=== PATIENT | male | born 1965 | race Caucasian/White ===

== ENCOUNTER 2019-04-02 19:38 | Inpatient (IN) | payer BC ==
[~2019-04-02] VITALS: Ht 180.3 cm; Wt 90.3 kg
[~2019-04-02 19:38] MED LIST: AMIODARONE 150 MG/3 ML VIAL ONE
[2019-04-02] MEDS ORDERED: HEPARIN for IV BOLUS 10,000 UNIT/10 ML VIAL. IV ONE ×2 (19:43→20:15)
[2019-04-02] MEDS ORDERED: ONDANSETRON PF 4 MG/2 ML VIAL. IVP ONE (19:45)
--- NOTE | 2019-04-02 19:46 | PHYS DOC ---
Adult General HPI HPI 54-year-old male presents to the emergency department with complaints of chest pain via EMS. Patient's underlying history of hypertension, coronary artery disease with history of TN approximate 7 years ago. Patient states he was not stented at that time, CT had good collateral flow according to the patient. Patient describes complaints of nausea, pressure sensation center aspect of his chest, some shortness of breath, diaphoresis. Nothing makes his pain worse, nothing makes his pain better. EMS provided aspirin 324 mg prior to arrival. Patient received 1 nitroglycerin in the emergency department, 2 mg morphine, blood pressure 160s systolically. EKG in the emergency department reveals evidence of a tree V4 V5 elevation. No significant reciprocal changes appreciated on examination. IV established, 4000 units of heparin provided. Review of Systems Review of Systems Constitutional: Denies fever or chills [] Respiratory: Denies cough or shortness of breath [] Cardiovascular: No additional information not addressed in HPI [] GI: Denies abdominal pain, + nausea, vomiting, no bloody stools or diarrhea [] Musculoskeletal: Denies back pain or joint pain [] Neurologic: Denies headache, focal weakness or sensory changes [] All other systems were reviewed and found to be within normal limits, except as documented in this note. Current Medications Current Medications Current Medications Medications (Trade) Dose Ordered Sig/Yolanda Start Time Stop Time Status Last Admin Dose Admin Fentanyl Citrate (Fentanyl 2ml Vial) 100 mcg 1X ONCE 04/02/19 20:15 04/02/19 20:25 DC 04/02/19 20:15 200 MCG Heparin Sodium (Porcine) (Heparin Sodium) 4,000 unit 1X ONCE 04/02/19 19:43 04/02/19 21:21 DC 04/02/19 19:43 4,000 UNIT Heparin Sodium/ Sodium Chloride (HEPARIN for ARTERIAL LINE FLUSH) 1,000 unit 1X ONCE 04/02/19 20:15 04/02/19 20:25 DC 04/02/19 20:15 1,000 UNIT Iodixanol (Visipaque 320) 100 ml 1X ONCE 04/02/19 20:15 04/02/19 20:25 DC 04/02/19 20:15 274 ML Lidocaine HCl (Lidocaine 1% 20ml Vial) 20 ml STK-MED ONCE 04/02/19 19:57 04/02/19 19:58 DC Lidocaine HCl (Xylocaine-Mpf 1% 2ml Vial) 2 ml 1X ONCE 04/02/19 20:15 04/02/19 20:25 DC 04/02/19 20:15 1 ML Midazolam HCl (Versed) 2 mg 1X ONCE 04/02/19 20:15 04/02/19 20:25 DC 04/02/19 20:15 3 MG Morphine Sulfate (Morphine Sulfate) 2 mg 1X ONCE 04/02/19 20:00 04/02/19 20:01 DC 04/02/19 19:45 2 MG Nitroglycerin (Nitro-Bid Oint) 0.5 inch 1X ONCE 04/02/19 20:05 04/02/19 21:21 DC 04/02/19 20:05 0.5 INCH Nitroglycerin (Nitroglycerin) 200 mcg 1X ONCE 04/02/19 20:15 04/02/19 20:25 DC Nitroglycerin (Nitrostat) 0.4 mg PRN Q5MIN PRN 04/02/19 20:00 04/03/19 00:42 DC 04/02/19 19:40 0.4 MG Ondansetron HCl (Zofran) 4 mg 1X ONCE 04/02/19 19:45 04/02/19 20:08 DC 04/02/19 19:45 4 MG Verapamil HCl (Verapamil) 2.5 mg 1X ONCE 04/02/19 20:15 04/02/19 20:25 DC Allergies Allergies Physical Exam Physical Exam Constitutional: Well developed, well nourished, no acute distress, non-toxic appearance. [] HENT: Normocephalic, atraumatic, bilateral external ears normal, oropharynx moist, no oral exudates, nose normal. [] Eyes: PERRLA, EOMI, conjunctiva normal, no discharge. [] Cardiovascular:Heart rate regular rhythm, no murmur [] Lungs & Thorax: Bilateral breath sounds clear to auscultation [] Abdomen: Bowel sounds normal, soft, no tenderness, no masses, no pulsatile masses. [] Skin: Warm, dry, no erythema, no rash. [] Back: No tenderness, no CVA tenderness. [] Extremities: No tenderness, no edema. [] Neurologic: Alert and oriented X 3, no focal deficits noted. [] Psychologic: Affect normal, judgement normal, mood normal. [] Current Patient Data Vital Signs Vital Signs Date Time Temp Pulse Resp B/P (MAP) Pulse Ox O2 Delivery O2 Flow Rate FiO2 04/02/19 20:15 12 04/02/19 20:15 60 04/02/19 20:05 96 Room Air 04/02/19 20:05 127/75 04/02/19 19:38 97.7 97.7 Lab Values Laboratory Tests Test 04/02/19 19:45 04/02/19 19:51 White Blood Count 10.7 x10^3/uL (4.0-11.0) Red Blood Count 5.39 x10^6/uL (4.30-5.70) Hemoglobin 17.3 g/dL (13.0-17.5) Hematocrit 49.3 % (39.0-53.0) Mean Corpuscular Volume 92 fL (79-100) Mean Corpuscular Hemoglobin 32 pg (25-35) Mean Corpuscular Hemoglobin Concent 35 g/dL (31-37) Red Cell Distribution Width 13.5 % (11.5-14.5) Platelet Count 330 x10^3/uL (140-400) Neutrophils (%) (Auto) 47 % (31-73) Lymphocytes (%) (Auto) 41 % (24-48) Monocytes (%) (Auto) 7 % (0-9) Eosinophils (%) (Auto) 5 % (0-3) H Basophils (%) (Auto) 1 % (0-3) Neutrophils # (Auto) 5.0 x10^3/uL (1.8-7.7) Lymphocytes # (Auto) 4.4 x10^3/uL (1.0-4.8) Monocytes # (Auto) 0.7 x10^3/uL (0.0-1.1) Eosinophils # (Auto) 0.5 x10^3/uL (0.0-0.7) Basophils # (Auto) 0.1 x10^3/uL (0.0-0.2) Prothrombin Time 12.9 SEC (11.7-14.0) Prothrombin Time INR 1.0 (0.8-1.1) Sodium Level 141 mmol/L (136-145) Potassium Level 4.2 mmol/L (3.5-5.1) Chloride Level 103 mmol/L (98-107) Carbon Dioxide Level 30 mmol/L (21-32) Anion Gap 8 (6-14) Blood Urea Nitrogen 9 mg/dL (8-26) Creatinine 1.0 mg/dL (0.7-1.3) Estimated GFR (Cockcroft-Gault) 77.9 BUN/Creatinine Ratio 9 (6-20) Glucose Level 138 mg/dL (70-99) H Calcium Level 9.3 mg/dL (8.5-10.1) Magnesium Level 2.2 mg/dL (1.8-2.4) Total Bilirubin 0.5 mg/dL (0.2-1.0) Aspartate Amino Transferase (AST) 16 U/L (15-37) Alanine Aminotransferase (ALT) 22 U/L (16-63) Alkaline Phosphatase 76 U/L (46-116) Troponin I Quantitative < 0.017 ng/mL (0.000-0.055) Total Protein 7.3 g/dL (6.4-8.2) Albumin 3.9 g/dL (3.4-5.0) Albumin/Globulin Ratio 1.1 (1.0-1.7) POC Troponin I 0.01 ng/ml (<0.08) Laboratory Tests 04/02/19 19:45 Laboratory Tests 04/02/19 19:45 EKG EKG EKG transmission from EMS reveals evidence of anterior septal ST elevation V2 V3 V4 with minimal elevation in V5. Repeat EKG in the emergency department reveals evidence of elevation in V3 V4, heart rate 69. Interpretation time 1946[] Radiology/Procedures Radiology/Procedures [] Course & Med Decision Making Course & Med Decision Making Pertinent Labs and Imaging studies reviewed. (See chart for details) []54-year-old male presents to the emergency department with complaints of chest pain via EMS. Patient's underlying history of hypertension, coronary artery disease with history of TN approximate 7 years ago. Patient states he was not stented at that time, had good collateral flow according to the patient. Patient describes complaints of nausea, pressure sensation center aspect of his chest, some shortness of breath, diaphoresis. Nothing makes his pain worse, nothing makes his pain better. EMS provided aspirin 324 mg prior to arrival. Patient received 1 nitroglycerin in the emergency department, 2 mg morphine, blood pressure 160s systolically. EKG in the emergency department reveals evidence of V3 V4 V5 elevation. No significant reciprocal changes appreciated on examination. IV established, 4000 units of heparin provided. 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 Departure Departure Impression: Primary Impression: STEMI (ST elevation myocardial infarction) Additional Impression: Hypertension Disposition: ADMITTED INPATIENT Admitting Physician: ROLANDO Condition: GUARDED Critical Care Time Critical care time was 35 minutes exclusive of procedures. Problem Qualifiers Primary Impression: STEMI (ST elevation myocardial infarction) Involved coronary artery: unspecified coronary artery Qualified Codes: I21.3 - ST elevation (STEMI) myocardial infarction of unspecified site Additional Impression: Hypertension Hypertension type: essential hypertension Qualified Codes: I10 - Essential (primary) hypertension KATIE BISHOP MD Apr 02, 2019 19:46
[2019-04-02 19:56] LABS: BASO # 0.1 x10^3/uL (0.0-0.2); BASO % 1 % (0-3); EOS # 0.5 x10^3/uL (0.0-0.7); EOS % 5 % (0-3); HEMATOCRIT 49.3 % (39.0-53.0); HEMOGLOBIN 17.3 g/dL (13.0-17.5); LYMPH # 4.4 x10^3/uL (1.0-4.8); LYMPH % 41 % (24-48); MEAN CORPUSCULAR HEMOGLOBIN 32 pg (25-35); MEAN CORPUSCULAR HGB CONC 35 g/dL (31-37); MEAN CORPUSCULAR VOLUME 92 fL (79-100); MONO # 0.7 x10^3/uL (0.0-1.1); MONO % 7 % (0-9); NEUT % 47 % (31-73); PLATELET COUNT 330 x10^3/uL (140-400); RED BLOOD COUNT 5.39 x10^6/uL (4.30-5.70); RED CELL DISTRIBUTION WIDTH 13.5 % (11.5-14.5); WHITE BLOOD COUNT 10.7 x10^3/uL (4.0-11.0)
[2019-04-02] MEDS ORDERED: LIDOCAINE 1% Multi-Dose 20 ML VIAL. ONE (19:57)
[2019-04-02] MEDS ORDERED: IODIXANOL 320 MG/ML 100 ML VIAL. ONE ×4 (19:57→21:58)
[2019-04-02] MEDS ORDERED: NITROGLYCERIN SUBLINGUAL 0.4 MG BOTTLE OF 25. SL PRN (20:00)
[2019-04-02] MEDS ORDERED: MORPHINE SULFATE 2 MG/ML VIAL. IV ONE (20:00)
[2019-04-02 20:05] LABS: PROTHROMBIN TIME PATIENT 12.9 SEC (11.7-14.0)
[2019-04-02] MEDS ORDERED: NITROGLYCERIN OINT 1 GM PACKET. TP ONE (20:05)
[2019-04-02] MEDS ORDERED: fentaNYL PF VIAL 100 MCG/2 ML VIAL ONE ×3 (20:06→22:27)
[2019-04-02] MEDS ORDERED: VERAPAMIL 5 MG/2 ML VIAL. ONE ×2 (20:06→21:00)
[2019-04-02] MEDS ORDERED: MIDAZOLAM HCL/PF 2 MG/2 ML VIAL. ONE ×2 (20:06→21:05)
[2019-04-02] MEDS ORDERED: HEPARIN for IV BOLUS 10,000 UNIT/10 ML VIAL. ONE (20:06)
[2019-04-02] MEDS ORDERED: NITROGLYCERIN OINT 1 GM PACKET. ONE (20:06)
[2019-04-02] MEDS ORDERED: NITROGLYCERIN 200 MCG/2 ML SYRINGE FOR CATH/VASC LAB. ONE (20:06)
--- NOTE | 2019-04-02 20:06 | RAD ---
EXAM: CHEST 1 VIEW History: ST elevation MO COMPARISON: 04/02/2019 TECHNIQUE: Single portable radiograph of the chest FINDINGS: The cardiac silhouette is unremarkable. The lungs are clear bilaterally. The costophrenic sulci are clear and well demarcated. IMPRESSION: No radiographic evidence of an acute cardiopulmonary process. Electronically signed by: Ismael Tadeo MD (04/02/2019 8:03 PM) [id number]
[2019-04-02 20:14] LABS: CALCIUM 9.3 mg/dL (8.5-10.1); GFR 77.9; POTASSIUM 4.2 mmol/L (3.5-5.1)
[2019-04-02] MEDS ORDERED: HEPARIN for IV BOLUS 10,000 UNIT/10 ML VIAL. IART ONE (20:15)
[2019-04-02] MEDS ORDERED: MIDAZOLAM HCL/PF 2 MG/2 ML VIAL. IV ONE (20:15)
[2019-04-02] MEDS ORDERED: NITROGLYCERIN 200 MCG/2 ML SYRINGE FOR CATH/VASC LAB. IART ONE (20:15)
[2019-04-02] MEDS ORDERED: fentaNYL PF VIAL 100 MCG/2 ML VIAL IV ONE (20:15)
[2019-04-02] MEDS ORDERED: LIDOCAINE 1% PF 2 ML VIAL. INJ ONE (20:15)
[2019-04-02] MEDS ORDERED: VERAPAMIL 5 MG/2 ML VIAL. IART ONE (20:15)
[2019-04-02] MEDS ORDERED: IODIXANOL 320 MG/ML 100 ML VIAL. IART ONE (20:15)
[2019-04-02 20:18] LABS: ALBUMIN 3.9 g/dL (3.4-5.0); ALBUMIN/GLOBULIN RATIO 1.1 (1.0-1.7); MAGNESIUM 2.2 mg/dL (1.8-2.4); TOTAL BILIRUBIN 0.5 mg/dL (0.2-1.0); TOTAL PROTEIN 7.3 g/dL (6.4-8.2)
[2019-04-02] MEDS ORDERED: TIROFIBAN 5MG -0.9% NS 100 ML IV ONE (20:25)
[2019-04-02] MEDS ORDERED: AMIODARONE 150 MG/3 ML VIAL IVP ONE (21:00)
[2019-04-02] MEDS ORDERED: SODIUM CHLORIDE 5 MG/100 ML IV ONE (21:00)
[2019-04-02] MEDS ORDERED: TIROFIBAN IV ONE (21:00)
[2019-04-02] MEDS ORDERED: INFUSION IV ONE (21:00)
[2019-04-02] MEDS ORDERED: MORPHINE SULFATE 4 MG/ML VIAL. ONE (21:01)
--- NOTE | 2019-04-02 22:46 | PDOC2 ---
CARDIOLOGY CONSULT NOTE CHEIF COMPLAINT: Chest pain x 12 hours HPI: Ezequiel is a 54 y.o man w/ pmhx as noted below who presented to the emergency department approximately 7:30 PM today for worsening chest pain. He poorly has been having stuttering chest pain for 2 weeks or so which progressively worsened over the last 12 hours. He poorly had chest pain this morning and then went to sleep and after waking up had persistent severe chest pain which prompted the family to call 911. Initial evaluation the ER revealed anterior ST elevations in V2 through V4. This was also noted on his EKG in route in the ambulance. Upon arrival the patient was noted to be normotensive and had a heart rate of 78. Due to his EKG revealing anterior ST elevations he was emergently taken to the [facility]. PMHX: 1. 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 Tobacco abuse 3. Presumed history of untreated hypertension. SOCHX: He is . He has children. No illicit drug use. He works from home. FAMHX: Positive for significant family history of coronary disease. CURRENT MEDS: In the ER he was given intravenous heparin and in route received aspirin therapy. ALLERGIES: Allergies Coded Allergies Type Severity Reaction Last Updated Verified Penicillins Allergy Intermediate 04/02/19 Yes ROS: Negative unless otherwise mentioned above in history of present illness. PHYSICAL EXAM: Vital Signs/I&O: Vital Signs Date Time Temp Pulse Resp B/P (MAP) Pulse Ox O2 Delivery O2 Flow Rate FiO2 04/02/19 20:40 63 04/02/19 20:15 12 04/02/19 20:05 96 Room Air 04/02/19 20:05 127/75 04/02/19 19:38 97.7 97.7 Physical Exam: On examination he was moderately distressed with some nausea Head and neck exam is unremarkable Cardiac examination revealed regular rhythm without any obvious murmurs Lungs are clear to auscultation anteriorly He had 2+ radial and dorsalis pedis pulses. DIAGNOSTIC TESTING: Initial troponin negative Initial EKG with anterior ST elevation in V2 through V4 without any reciprocal changes. Lab Laboratory Tests Test 04/02/19 19:45 04/02/19 19:51 White Blood Count 10.7 x10^3/uL (4.0-11.0) Red Blood Count 5.39 x10^6/uL (4.30-5.70) Hemoglobin 17.3 g/dL (13.0-17.5) Hematocrit 49.3 % (39.0-53.0) Mean Corpuscular Volume 92 fL (79-100) Mean Corpuscular Hemoglobin 32 pg (25-35) Mean Corpuscular Hemoglobin Concent 35 g/dL (31-37) Red Cell Distribution Width 13.5 % (11.5-14.5) Platelet Count 330 x10^3/uL (140-400) Neutrophils (%) (Auto) 47 % (31-73) Lymphocytes (%) (Auto) 41 % (24-48) Monocytes (%) (Auto) 7 % (0-9) Eosinophils (%) (Auto) 5 % (0-3) H Basophils (%) (Auto) 1 % (0-3) Neutrophils # (Auto) 5.0 x10^3/uL (1.8-7.7) Lymphocytes # (Auto) 4.4 x10^3/uL (1.0-4.8) Monocytes # (Auto) 0.7 x10^3/uL (0.0-1.1) Eosinophils # (Auto) 0.5 x10^3/uL (0.0-0.7) Basophils # (Auto) 0.1 x10^3/uL (0.0-0.2) Prothrombin Time 12.9 SEC (11.7-14.0) Prothromb Time International Ratio 1.0 (0.8-1.1) Sodium Level 141 mmol/L (136-145) Potassium Level 4.2 mmol/L (3.5-5.1) Chloride Level 103 mmol/L (98-107) Carbon Dioxide Level 30 mmol/L (21-32) Anion Gap 8 (6-14) Blood Urea Nitrogen 9 mg/dL (8-26) Creatinine 1.0 mg/dL (0.7-1.3) Estimated GFR (Cockcroft-Gault) 77.9 BUN/Creatinine Ratio 9 (6-20) Glucose Level 138 mg/dL (70-99) H Calcium Level 9.3 mg/dL (8.5-10.1) Total Bilirubin 0.5 mg/dL (0.2-1.0) Aspartate Amino Transf (AST/SGOT) 16 U/L (15-37) Alkaline Phosphatase 76 U/L (46-116) Total Protein 7.3 g/dL (6.4-8.2) Albumin 3.9 g/dL (3.4-5.0) Albumin/Globulin Ratio 1.1 (1.0-1.7) Bedside Troponin I 0.01 ng/ml (<0.08) Laboratory Tests 04/02/19 19:45 ASSESSMENT: 1. Severe three-vessel coronary artery disease His cardiac catheterization revealed a distal RCA occlusion as well as a mid LAD occlusion. His circumflex had to 70% stenoses in the first and second obtuse marginal vessels. Due to initial anterior ST elevations through a EBU 3.5 guide catheter via the right radial approach a pro-water wire and a Choice PT wire were unable to cross the occlusion. Ultimately a air force pilot 200 wire was used which was able to traverse assisted to the occluded segment. Balloon angioplasty was then performed with a 2.5 mm balloon at nominal pressures. This subsequently revealed significant diffuse thrombus burden and a dissection plane. This also noted collaterals via the septal pathways to the distal right coronary artery. Due to significant difficulty wiring the lesion decision was made to attempt to revascularize the RCA. With continued heparin infusion and tirofiban infusion through a JR4 guide catheter a times were made to traverse the severely diffusely diseased PDA but is were unsuccessful. At this time given severe diffuse disease with persistent ST elevation and chest pain a LV gram was performed which revealed an apical aneurysm and near normal LV function. Due to initial negative troponin after 12 hours of stuttering chest pain, and significant difficulty with wiring of the lesion this was felt to be a chronic total occlusion or near chronic total occlusion. After discussion with [facility] for consideration of high risk bypass versus high risk PCI a repeat left coronary angiography with the aid of a JL4 guide via the right femoral approach was performed due to spasm of the right radial artery. This revealed persistent thrombus and dissection at the level of the mid to distal LAD. Next, a pro-water wire was then advanced to the apical LAD without significant difficulty. Balloon angioplasty was performed of the mid LAD with a 2.5 mm balloon at nominal pressures but there was not significant robust distal flow and therefore a stent was not deployed in favor of possible high risk bypass. The patient/family were updated. Case discussed with [facility] and plan for emergent transfer. PLAN: Case discussed with Dr. Raphael Davis at [facility] and plan is for patient to be transferred to the CICU with consideration of repeat coronary angiography as deemed necessary based on symptoms and progression of EKG changes and cardiac biomarkers. SERA LANDEROS MD Apr 02, 2019 22:46
[2019-04-02 23:02] VITALS: BP 146/101
--- NOTE | 2019-04-02 23:11 | NUR ---
Patient came to [facility] emergently from ER and Dr. Frias accessed his right radial artery to get pictures of his blockages. Patient had no troponin elevation but stated he had been dealing with chest pain since this morning. ST elevations remained during procedure and patient v-fib arrested but returned to SR with one shock. Dr. Frias spoke with patient's and together they decided to send the patient to [facility] for further evaluation. Patient had extensive disease and chronic total occlusions. Right femoral artery was also accessed and a sheath was sutured into place for an arterial line. See EMR for drugs given and vital signs remained stable while awaiting [facility] to transport patient to . Gayle YEAGER at [facility] CVICU was given report. Patient's came to [facility] to see him and accompany him to .
--- NOTE | 2019-04-03 12:07 | EKG ---
[facility] [address] [place] [address] Test Date: 2019-04-02 Test Time: 19:47:28 Pat Name: LUIS TOVAR Department: Room: Gender: M Residential Program Director: : 1965 Requested By: KATIE BISHOP Order Number: [id number] Reading MD: Measurements Intervals Welcome Rate: 69 P: 24 TN: 200 QRS: -6 QRSD: 92 T: 39 QT: 380 QTc: 408 Interpretive Statements SINUS RHYTHM LEFTWARD AXIS R-S TRANSITION ZONE IN V LEADS DISPLACED TO THE RIGHT QRS(T) CONTOUR ABNORMALITY CONSIDER ANTEROLATERAL MYOCARDIAL DAMAGE POSSIBLY ABNORMAL ECG No previous ECG available for comparison
--- NOTE | 2019-04-05 11:58 | CARD ---
MR#: [id number] Date of Study: 04/02/2019 Ordering Physician: SERA LANDEROS, Referring Physician: SERA LANDEROS, Tech: RT Nancy (R) AMARILYS APPROVED REPORT Technologist: RT Nancy (R) AMARILYS Nurse: Alice Castellanos RN Procedure(s) performed: FLOURO TIME 28.4 MINUTES DOSE 372.5 Gycm2 CONTRAST 274 CC'S VISIPAQUE MODERATE SEDATION 150 MINUTES LHC, Coronary angiography, Balloon angioplasty of the LAD LV gram HISTORY The patient is a 54 year-old male with a history of : coronary artery disease, tobacco history() , hy pertension, dyslipidemia. INDICATION The indication(s) include : STEMI . [facility] Clinical Frailty Scale [facility] Clinical Frailty Scale: Moderately Frail Heart Failure Heart Failure: Yes If Yes, Newly Diagnosed: No If Yes, HF Type: Diastolic Systolic If Yes, NYHA Class: Class III PROCEDURE NARRATIVE Critical indication: Acute anterior ST elevation myocardial infarction and chest pain Patient is a 54-year-old man with stuttering chest pain for 12 hours who presented to the ER with wor sening chest pain and was found to have anterior ST elevations in V2 through V4. Procedure details: The patient was emergently brought to the cardiac catheterization laboratory after verbal informed co nsent was obtained. The right wrist and right groin were prepped and draped in usual sterile fashion. Under 2% lidocaine local anesthesia a 6 Emirati sheath was placed in the right radial artery without a ny difficulty. Next, diagnostic angiography was performed with a JR4 catheter for the right coronary artery and a EBU 3.5 guide catheter for the left coronary artery. Findings: Left main is a large caliber vessel with normal angiographic appearance The LAD has a mid 100% occlusion The first diagonal is a small caliber vessel with severe diffuse disease The second diagonal has a proximal 70-80% stenosis The left circumflex is a moderate caliber vessel with no significant disease The first obtuse marginal has a mid 70% stenosis The second obtuse marginal has a proximal to mid 70% stenosis The right coronary artery is a large caliber dominant vessel with a mid 60% stenosis in the distal santo btotal occlusion The RPL is a small caliber vessel with mild diffuse disease The RPDA is a small caliber vessel with a proximal 100% occlusion. The distal vessel is seen to fill via robust septal collaterals. Interventional technique: Due to anterior ST elevations the LAD was felt to be the culprit lesion. Heparin and tirofiban were u sed for anticoagulation. Through a 6 Emirati EBU 3.5 guide catheter initial attempts to advance a pro- water wire were unsuccessful. Next, with the aid of a 2.5 x 12 mm balloon a pro-water wire, Choice PT wire and commercial pilot 200 wires were used to traverse the chronic total occlusion/subacute chronic total oc clusion and this was unsuccessful. After the commercial pilot 200 wire was able to be advanced to the distal LAD past the mid LAD balloon angioplasty was performed with nominal pressures using a 2.5 mm balloon. Th is stent revealed a probable occlusion site at the distal LAD. Unfortunately, further times advance a wire weren't successful. At this time due to persistent ST elevations, a negative cardiac biomarker after 12 hours of chest pa in a LV gram was performed to rule out aneurysmal dilatation. The left ventriculogram results are as follows: Ejection fraction of 50% with apical akinesis. LVEDP 19 mmHg. Due to severe three-vessel diffuse disease with chronic total occlusions and decision was then made t o transfer the patient to [facility] for consideration of high risk bypass versus high risk PC I. After discussion with the Medical Center due to persistent chest pain that is worsening a repeat c oronary angiography was performed via the right femoral approach after obtaining access in the right common femoral artery and right common femoral vein. The right radial approach was deferred due to ra dial spasm and difficulty advancing further guide catheters. Findings of repeat angiography: The mid to distal LAD was noted to have diffuse thrombus, dissection without any significant apical f low. Next, a pro-water wire was then used to traverse the distal stenosis and this was able to be eas cayden wire to the apical segment. Balloon angioplasty was performed in the mid to distal LAD using a 2. 0 and a 2.5 mm compliant balloons at nominal pressures. Despite prolonged balloon inflations distal L AD flow was STACIE 1 to STACIE 2. Therefore decision was made to defer stenting and in favor of continued antiplatelet and anticoagulant therapy with repeat coronary angiography after vessel healing. Due to risk of possible perforation further aggressive balloon angioplasty was not performed. The right groin sheaths were sutured to the skin and the patient was transported via ambulance to [facility] for further evaluation and treatment. Conclusion 1. Acute anterior ST elevation myocardial infarction 2. Severe diffuse three-vessel coronary artery disease 3. Unsuccessful balloon angioplasty of the mid LAD occlusion 4. Acute on chronic decompensated systolic and diastolic heart failure with an LVEDP of 19 mmHg Recommendations 1. Emergent transfer to [facility] for consideration of high risk multivessel PCI versus bypas s surgery. Signed by : Sera Landeros, Electronically Approved : 04/02/2019 23:06:14
== END 2019-04-02 22:00 | disposition short-term general hospital (02) | DRG 250 ==
LOC: ER 19:38 → 1 WEST ICU 20:22
PROVIDERS: ADMIT Internal Medicine; ATTEND Internal Medicine
PROC: 02703ZZ Dilation of Coronary Artery, One Artery, Percutaneous Approach (ICD-10-PCS; principal; 2019-04-02)
PROC: 4A023N7 Measurement of Cardiac Sampling and Pressure, Left Heart, Percutaneous Approach (ICD-10-PCS; 2019-04-02)
PROC: B2111ZZ Fluoroscopy of Multiple Coronary Arteries using Low Osmolar Contrast (ICD-10-PCS; 2019-04-02)
DX: I21.3 ST elevation (STEMI) myocardial infarction of unspecified site (principal); I50.43 Acute on chronic combined systolic (congestive) and diastolic (congestive) heart failure; I25.10 Atherosclerotic heart disease of native coronary artery without angina pectoris; I11.0 Hypertensive heart disease with heart failure
CPT/HCPCS: 36415; 71045; 80053; 83735; 84484; 85025; 85347; 85610; 92941; 93005; 93458; 96374; 96375; 99152; 99153; C1725; C1769; C1887; C1892; J0282; J1644; J2250; J2270; J2405; J3010; Q9967; 99291-25; G0378; J3246